=== PATIENT | male | born 1985 | race Caucasian/White ===

== ENCOUNTER 2018-04-11 20:39 | Emergency (ER) | payer SELFPAY ==
--- NOTE | 2018-04-11 20:56 | PDOC ---
Rapid Medical Evaluation Chief Complaint: Toothache Time Seen by Provider: 04/11/18 20:54 Medical Evaluation: 04/11/18 20:54 The patient presents with a chief complaint of: luq dental pain x 2 days, no fever I have performed a brief in-person evaluation of this patient; Pertinent physical exam findings: vss , LUQ MOLAR BROKEN AND DECAYED I have ordered the following: none The patient will proceed to the ED for further evaluation. Discharge Disposition - Diagnosis Pain, dental - Referrals - Patient Instructions - Post Discharge Activity
[2018-04-11 20:59] VITALS: BP 126/70; PULSE 99; TEMP 98.2; BMI 25.0
--- NOTE | 2018-04-11 21:33 | PDOC ---
History of Present Illness - General Chief Complaint: Toothache Stated Complaint: TOOTH PAIN Time Seen by Provider: 04/11/18 20:54 History Source: Patient Exam Limitations: No Limitations - History of Present Illness Initial Comments: 04/11/18 21:46 Best Contact: PCP: Denies Pmhx: Denies Pshx: 2008: Laparoscopic appendectomy Allergies: NKDA FH:0 Social Hx: Cigarettes/ Denies Alcohol/ social Drugs/denies 32-year-old male presents to the emergency department complaining of cracked tooth to the left upper molar/tooth #15 while eating dinner last evening. Patient states he is able to eat and drink with minimal pain. Patient denies taking any pain medication. Patient denies difficulty swallowing, fever, chills , nausea/vomiting, sore throat, earache, facial pains, facial swelling, tongue swelling, shortness of breath. Patient states he has never seen a dentist before. He she states he eats candy all day and sometimes falls asleep attending his mouth. Past History - Past Medical History Allergies/Adverse Reactions: Allergies Allergy/AdvReac Type Severity Reaction Status Date / Time No Known Allergies Allergy Verified 04/11/18 20:56 Home Medications: Ambulatory Orders Acetaminophen W/ Codeine #3 [Tylenol # 3 -] 1 tab PO Q6H #12 tablet MDD 4 Amoxicillin - [Amoxicillin 500mg Capsule -] 500 mg PO TID #30 capsule 04/11/18 - Suicide/Smoking/Psychosocial Hx Smoking History: Never smoked Have you smoked in the past 12 months: No Information on smoking cessation initiated: No Hx Alcohol Use: No Drug/Substance Use Hx: No Review of Systems - Review of Systems Able to Perform ROS?: Yes Comments:: 04/11/18 21:48 CONSTITUTIONAL: Absent: fever, chills, diaphoresis, generalized weakness, malaise, loss of appetite HEENT: Absent: rhinorrhea, nasal congestion, throat pain, throat swelling, difficulty swallowing, mouth swelling, ear pain, eye pain, visual Changes Left upper tooth #14 pain SKIN: Absent: rash, itching, pallor HEMATOLOGIC/IMMUNOLOGIC: Absent: easy bleeding, easy bruising, lymphadenopathy, frequent infections Is the patient limited Thai proficient: No *Physical Exam - Vital Signs Last Vital Signs Temp Pulse Resp BP Pulse Ox 98.2 F 99 H 18 126/70 100 04/11/18 20:54 04/11/18 20:54 04/11/18 20:54 04/11/18 20:54 04/11/18 20:54 - Physical Exam Comments: 04/11/18 21:50 GENERAL: Well developed, well nourished. Awake and alert. No acute distress. HEENT: tooth #15 fractured to the enamel, +pain on percussion to the tooth but not the surreounding gums, neg gum swelling Patient has decayed to every tooth in his mouth Negative trismus Negative sores to the mucosa Negative swelling to neck/head lymph nodes: Posterior auricular, occipital, superficial cervical, diffuse cervical, posterior cervical, supra clavicula, preauricular, parotid, tonsillar, submental, submandibular Negative lesions noted to the gums or mucosa Negative bleeding or inflammation to the tongue and on the roof floor of the mouth Patient able to open and close mouth without any pain Normocephalic, atraumatic. PERRLA, EOMI. No conjunctival pallor. Sclera are non- icteric. Moist mucous membranes. Oropharynx is clear. NECK: Supple. Full ROM. No JVD. Carotid pulses 2+ and symmetric, without bruits. No thyromegaly. No lymphadenopathy. SKIN: Warm and dry. Normal capillary refill. No rashes. No jaundice. Moderate Sedation - Procedure Monitoring Vital Signs: Procedure Monitoring Vital Signs Temperature 98.2 F 04/11/18 20:54 Pulse Rate 99 H 04/11/18 20:54 Respiratory Rate 18 04/11/18 20:54 Blood Pressure 126/70 04/11/18 20:54 O2 Sat by Pulse Oximetry (%) 100 04/11/18 20:54 *DC/Admit/Observation/Transfer Diagnosis at time of Disposition: Pain, dental, Decay, teeth - Discharge Dispostion Disposition: HOME Condition at time of disposition: Stable Decision to Admit order: No - Prescriptions Prescriptions: Acetaminophen W/ Codeine #3 [Tylenol # 3 -] 1 tab PO Q6H #12 tablet MDD 4 Amoxicillin - [Amoxicillin 500mg Capsule -] 500 mg PO TID #30 capsule - Referrals - Patient Instructions Printed Discharge Instructions: DI for Tooth Decay, DI for Dental Pain Additional Instructions: Follow up with the dentist [facility] [phone] [place]: [phone] Saturday through Saturday: 4 PM to 9 PM Saturday and Saturday 9 AM to 5 PM You have decay on almost every single tooth in your mouth. It is important that you follow-up with the dentist as soon as possible. You will be placed on antibiotics, usually take it until completion. The prescription for your pain medication should be used sparingly Return back to the ER for severe/persistent or worsening symptoms - Post Discharge Activity
== END 2018-04-11 21:42 | disposition home or self-care (01) ==
LOC: JERFT 20:39
CPT/HCPCS: 99281-25